=== PATIENT | male | born 2000 | race Caucasian/White ===

== ENCOUNTER → 2024-01-19 16:48 | Outpatient (CLI) | payer OTHER, SELFPAY ==
[2024-01-19 17:01] LABS: Semen Sperm Prescence Post-Vas Absent (ABSENT)
== END ==
LOC: LAB 16:50
PROVIDERS: Referring Provider Specialist; Visit Provider Specialist
DX: Z98.52 Vasectomy status (principal)
CPT/HCPCS: 89321